=== PATIENT | male | born 1955 | race Caucasian/White ===

== ENCOUNTER 2018-12-28 09:39 | Outpatient (CLI) | payer MEDICARE, BC, MEDICAID ==
[~2018-12-28] VITALS: Ht 188 cm; Wt 133.0 kg
[2018-12-28] VITALS (9 sets, daily range): BP systolic 123–162; BP diastolic 73–90
[2018-12-28] MEDS ORDERED: regadenoson 0.4mg/5ml syringe IV ONE ×2 (10:45→11:52)
[2018-12-28] MEDS ORDERED: aminophylline 250mg/10ml inj. IV PRN (10:50)
[2018-12-28] MEDS ORDERED: nitroGLYCERIN 0.4mg SUBLingual tab SL PRN (10:50)
[2018-12-28] MEDS ORDERED: normal saline 1000ml 1,000 ML IV SCH (10:55)
[2018-12-28] MEDS ORDERED: aminophylline inj. 10 ML IV ONE (11:52)
== END 2018-12-28 23:59 | disposition home or self-care (01) ==
LOC: RAD 09:39
PROVIDERS: ATTEND Internal Medicine Cardiovascular Disease
DX: Z01.810 Encounter for preprocedural cardiovascular examination (principal); I10 Essential (primary) hypertension; R06.00 Dyspnea, unspecified; Z87.891 Personal history of nicotine dependence; Z88.0 Allergy status to penicillin; Z88.1 Allergy status to other antibiotic agents
CPT/HCPCS: 78452; 93017; A9500; J0280; J7030

== ENCOUNTER 2024-10-14 07:50 | Outpatient (CLI) | payer MEDICARE, BC, MEDICAID ==
[2024-10-14] VITALS (7 sets, daily range): BP systolic 143–161; BP diastolic 74–87; PULSE 81–107; RESP 20–24; O2SAT 100
[~2024-10-14] VITALS: Ht 188 cm; Wt 134.7 kg
[2024-10-14] MEDS ORDERED: aminophylline inj. 0 ML IV ONE (09:34)
[2024-10-14] MEDS: regadenoson 0.4mg/5ml syringe IV ONE (09:40)
== END 2024-10-14 23:59 | disposition home or self-care (01) ==
LOC: NM 07:50
PROVIDERS: ATTEND Student in an Organized Health Care Education/Training Program
DX: I50.22 Chronic systolic (congestive) heart failure (principal)
CPT/HCPCS: 78452; 93017; A9500; J2785; J0280

== ENCOUNTER 2025-02-06 09:31 | Day surgery (SDC) | payer MEDICARE, BC, MEDICAID ==
[2025-02-06] VITALS (10 sets, daily range): BP systolic 112–148; BP diastolic 58–77; PULSE 51–62; RESP 12–16; TEMP 98.3; O2SAT 94–97
[~2025-02-06] VITALS: Ht 188 cm; Wt 131.6 kg
[2025-02-06] MEDS ORDERED: OMEP20CA16 PO (10:10)
[2025-02-06] MEDS ORDERED: ALBU18HF2 (10:10)
[2025-02-06] MEDS ORDERED: EMPA10TA PO (10:10)
[2025-02-06] MEDS ORDERED: SACU1TAB4 PO (10:10)
[2025-02-06] MEDS ORDERED: POTA-280 PO (10:10)
[2025-02-06] MEDS ORDERED: FURO40TA4 PO (10:10)
[2025-02-06] MEDS ORDERED: ASPI81TA47 PO (10:10)
[2025-02-06] MEDS ORDERED: SPIR50TA5 PO (10:10)
[2025-02-06] MEDS ORDERED: ATOR40TA72 PO (10:10)
[2025-02-06] MEDS ORDERED: HYDR-3964 (10:10)
[2025-02-06] MEDS ORDERED: LABE100T8 PO (10:11)
[2025-02-06] MEDS ORDERED: MULT-1142 PO (10:12)
[2025-02-06] MEDS ORDERED: NAPR220T67 PO (10:13)
[2025-02-06] MEDS ORDERED: DIPH25CA83 PO (10:17)
[2025-02-06] MEDS: diphenhydrAMINE 25mg capsule PO PRN (10:58)
[2025-02-06] MEDS: LORazepam 0.5 MG tablet PO PRN (10:58)
[2025-02-06] MEDS: normal saline 1,000 ML IV SCH (10:59)
[2025-02-06] MEDS ORDERED: LIDOcaine 1% (10mg/ml) 2ml vial ONE (12:11)
[2025-02-06] MEDS ORDERED: midazolam 1 mg/ML 2ml injection ONE ×2 (12:11→12:57)
[2025-02-06] MEDS ORDERED: verapamil 2.5 mg/ml inj IV ONE (12:11)
[2025-02-06] MEDS ORDERED: nitroGLYCERIN 500mcg/5mL D5W 5 ML IV ONE (12:12)
[2025-02-06] MEDS ORDERED: fentaNYL/PF 50MCG/1 ML 2ML syringe ONE (12:12)
[2025-02-06] MEDS ORDERED: heparin 1,000unit/ml 10ml vial 10 ML ONE (12:12)
[2025-02-06] MEDS ORDERED: iohexol 350MG/ML 100ml bottle IV ONE (12:12)
[2025-02-06] MEDS ORDERED: HYDROcodone/acetaminophen 10/325mg tab PO PRN (13:50)
[2025-02-06] MEDS ORDERED: HYDROcodone/acetaminophen 5mg/325mg tablet PO PRN (13:50)
== END 2025-02-06 16:30 | disposition home or self-care (01) ==
LOC: SSTAY O 09:31
PROVIDERS: ATTEND Student in an Organized Health Care Education/Training Program
DX: R94.39 Abnormal result of other cardiovascular function study (principal); R06.09 Other forms of dyspnea; E78.5 Hyperlipidemia, unspecified; I50.32 Chronic diastolic (congestive) heart failure; I11.0 Hypertensive heart disease with heart failure; Z88.0 Allergy status to penicillin; Z88.8 Allergy status to other drugs, medicaments and biological substances
CPT/HCPCS: 93005; 93458; A6258; A6402; C1894; J1644; J2003; J2250; J3010; J3490; J7030; Q0163; Q9967; Z7610; 99152